=== PATIENT | male | born 1965 | race Caucasian/White ===

== ENCOUNTER 2017-02-24 11:52 | Emergency (ER) | payer BC, MEDICARE ==
[~2017-02-24] VITALS: Ht 177.8 cm; Wt 97.7 kg
[2017-02-24 11:54] VITALS: BP 144/89; PULSE 90; RESP 16; TEMP 98.7; O2SAT 97
--- NOTE | 2017-02-24 12:39 | PD ---
HPI Chief Complaint: Chest Pain Time Seen by Provider: 12:39 Travel History International Travel<30 days: No Contact w/Intl Traveler<30days: No Traveled to known affect area: No History of Present Illness HPI 51-year-old male with a history of hypertension, hyperlipidemia, diabetes, COPD , tobacco abuse presents to the emergency department for evaluation of chest pain and abnormal EKG. The patient states that he was seen by primary care provider Dr. Higgins for the first time today and they were discussing increasing his insomnia medications. States that he wanted a baseline EKG before increasing dosages and noted there to be an abnormality on EKG. the patient was then sent to the ED for further evaluation. The patient states that he has had left anterior chest wall pain for 8 months only with palpation. States that he has been in the process of moving and has done a lot of heavy lifting which is why he believes he has had pain in his chest wall. He denies any shortness of breath, difficulty breathing, lightheadedness, dizziness, nausea, vomiting, abdominal pain. Denies any prior RI or stents. Last stress test was 10 years ago. No other complaints. PFSH Past Medical History Diabetes: Yes (TYPE 2) Respiratory: Yes (COPD) Social History Tobacco Use: Yes Allergies-Medications (Allergen,Severity, Reaction): Coded Allergies: Sulfa (Verified Allergy, Severe, RASH, 02/24/17) Reported Meds & Prescriptions Reported Meds & Active Scripts Active Reported Lisinopril-Hctz 10-12.5 Mg Tab 1 Tab PO DAILY Glipizide 10 Mg Tab 10 Mg PO DAILY Take 30 minutes before a meal Metformin (Metformin HCl) 1,000 Mg Tab 1,000 Mg PO BIDPC With meals Review of Systems Except as stated in HPI: all other systems reviewed are Neg Physical Exam Narrative GENERAL: Well-nourished and well-developed pleasant patient in no acute distress who is nontoxic appearing. SKIN: Warm and dry without any obvious rashes or lesions. HEAD: Normocephalic and atraumatic. No bony point tenderness or crepitus noted throughout the sinuses. EYES: No injection, drainage, or hyphema noted. PERRLA. EOMI. ENT: No nasal drainage noted. Oropharynx is clear and the TMs are normal with good landmarks. NECK: Supple and the trachea is midline. No lymphadenopathy is noted throughout the cervical chains. CARDIOVASCULAR: Regular rate and rhythm. RESPIRATORY: Breath sounds are equal bilaterally with no accessory muscle use, wheezing, rhonchi, or crackles. CHEST: Tenderness to palpation to left pectoris muscle. GASTROINTESTINAL: Abdomen is soft, non-tender, and nondistended. MUSCULOSKELETAL: No obvious deformities, swelling, cyanosis, or ecchymosis is present throughout the upper and lower extremities. Patient has full range of motion without any signs of neurovascular compromise. BACK: Nontender without any obvious deformities, bony point tenderness, or crepitus noted throughout the thoracic and lumbar vertebrae. NEUROLOGICAL: Awake, alert, and oriented. Normal speech and gait. Cranial nerves are grossly intact. Data Data Last Documented VS Vital Signs Date Time Temp Pulse Resp B/P Pulse Ox O2 Delivery O2 Flow Rate FiO2 02/24/17 13:48 97.7 68 17 150/73 98 02/24/17 12:50 Room Air Orders Basic Metabolic Panel (Bmp) (02/24/17 12:45) Ckmb (Isoenzyme) Profile (02/24/17 12:45) Complete Blood Count With Diff (02/24/17 12:45) Comprehensive Metabolic Panel (02/24/17 12:45) Magnesium (Mg) (02/24/17 12:45) Prothrombin Time / Inr (Pt) (02/24/17 12:45) Act Partial Throm Time (Ptt) (02/24/17 12:45) Troponin I (02/24/17 12:45) Chest, Single Ap (02/24/17 12:45) Ecg Monitoring (02/24/17 12:45) Bilateral Bp Monitoring (02/24/17 12:45) Iv Access Insert/Monitor (02/24/17 12:45) Oximetry (02/24/17 12:45) Oxygen Administration (02/24/17 12:45) Sodium Chloride 0.9% Flush (Ns Flush) (02/24/17 12:45) Electrocardiogram (02/24/17 12:22) CKMB (02/24/17 12:50) CKMB% (02/24/17 12:50) Labs Laboratory Tests Test 02/24/17 12:50 White Blood Count 12.1 TH/MM3 Red Blood Count 4.58 MIL/MM3 Hemoglobin 13.9 GM/DL Hematocrit 40.6 % Mean Corpuscular Volume 88.5 FL Mean Corpuscular Hemoglobin 30.2 PG Mean Corpuscular Hemoglobin 34.1 % Concent Red Cell Distribution Width 13.4 % Platelet Count 225 TH/MM3 Mean Platelet Volume 8.8 FL Neutrophils (%) (Auto) 57.5 % Lymphocytes (%) (Auto) 32.8 % Monocytes (%) (Auto) 5.5 % Eosinophils (%) (Auto) 3.7 % Basophils (%) (Auto) 0.5 % Neutrophils # (Auto) 6.9 TH/MM3 Lymphocytes # (Auto) 4.0 TH/MM3 Monocytes # (Auto) 0.7 TH/MM3 Eosinophils # (Auto) 0.4 TH/MM3 Basophils # (Auto) 0.1 TH/MM3 CBC Comment DIFF FINAL Differential Comment Prothrombin Time 9.9 SEC Prothromb Time International 0.9 RATIO Ratio Activated Partial 28.2 SEC Thromboplast Time Sodium Level 136 MEQ/L Potassium Level 4.5 MEQ/L Chloride Level 101 MEQ/L Carbon Dioxide Level 27.4 MEQ/L Anion Gap 8 MEQ/L Blood Urea Nitrogen 13 MG/DL Creatinine 1.06 MG/DL Estimat Glomerular Filtration 74 ML/MIN Rate Random Glucose 294 MG/DL Calcium Level 9.4 MG/DL Magnesium Level 1.7 MG/DL Total Bilirubin 0.2 MG/DL Aspartate Amino Transf 16 U/L (AST/SGOT) Alanine Aminotransferase 29 U/L (ALT/SGPT) Alkaline Phosphatase 148 U/L Total Creatine Kinase 155 U/L Creatine Kinase MB 1.3 NG/ML Troponin I LESS THAN 0.02 NG/ML Total Protein 7.7 GM/DL Albumin 3.7 GM/DL [facility] Medical Decision Making Medical Screen Exam Complete: Yes Emergency Medical Condition: Yes Differential Diagnosis Chest wall pain versus muscle strain versus costochondritis versus ACS versus pleurisy Narrative Course 51-year-old male presents to the emergency department for evaluation of chest wall pain and abnormal EKG. Patient is afebrile, vital signs are stable. He's had chest wall pain to his left chest wall for 8 months brought on only by palpation. He had an EKG done at his primary care provider's office that was abnormal and he was sent to the ED. EKG here shows sinus rhythm with slight ST elevation in V2 and V3 likely early repolarization. IV access is obtained, labs are drawn and sent. Patient is placed on cardiac telemetry and pulse oximetry monitoring. Patient took aspirin this morning. CBC is unremarkable. CMP shows hyperglycemia with a glucose of 294, otherwise unremarkable. Troponin is less than 0.02. Coags are unremarkable. Chest x-ray is unremarkable. Patient has remained stable and without complaint while here in the emergency department. I offered the patient admission to chest pain center for repeat cardiac enzymes, EKGs and possible stress testing. I discussed with the patient that his chest pain is atypical and is likely musculoskeletal in etiology however there is a possibility that this could be cardiogenic. The patient verbalizes understanding and elects to be discharged to home with instead of admission the chest pain center. Discussed signs and symptoms of when to return to the emergency department and advised follow-up with his PCP. Diagnosis Primary Impression: Chest pain Qualified Code: R07.9 - Chest pain, unspecified type Referrals: Primary Care Physician Patient Instructions: Chest Pain (ED), General Instructions Additional Instructions: We offered admission to chest pain center but you elected to be discharged to home and follow-up with your PCP instead. If you develop any worsening chest pain, shortness of breath or difficulty breathing please return to the ED. Med/Other Pt SpecificInfo: No Change to Meds Disposition: 01 DISCHARGE HOME Condition: Stable Paradise Lopez Feb 24, 2017 12:39
[2017-02-24] MEDS ORDERED: GLIP10TA6 PO (12:41)
[2017-02-24] MEDS ORDERED: LISI10TA PO (12:41)
[2017-02-24] MEDS ORDERED: METF1000 PO (12:41)
[2017-02-24] MEDS ORDERED: SODIUM CHLORIDE 0.9% FLUSH 10 ML FLUSH IVF PRN (12:45)
[2017-02-24 12:46] VITALS: RESP 18; O2SAT 98
[2017-02-24 12:50] VITALS: BP_SYST 156; BP_SYST 175; BP_DIAS 73; BP_DIAS 81; PULSE 86; RESP 18; O2SAT 98
[2017-02-24 13:13] LABS: AUTOMATED NEUTROPHIL # 6.9 TH/MM3 (1.8-7.7); BASOPHIL # 0.1 TH/MM3 (0-0.2); BASOPHIL % 0.5 % (0.0-2.0); EOSINOPHIL # 0.4 TH/MM3 (0-0.4); EOSINOPHIL % 3.7 % (0.0-4.0); HEMATOCRIT 40.6 % (39.0-51.0); HEMO FLAGS DIFF FINAL; LYMPH % 32.8 % (9.0-44.0); MEAN CELL VOLUME 88.5 FL (80.0-100.0); MEAN CORPUSCULAR HEMOGLOBIN 30.2 PG (27.0-34.0); MEAN CORPUSCULAR HGB CONC 34.1 % (32.0-36.0); MONO % 5.5 % (0.0-8.0); NEUT % 57.5 % (16.0-70.0); PLATELET COUNT 225 TH/MM3 (150-450); RED BLOOD COUNT 4.58 MIL/MM3 (4.50-5.90); RED CELL DISTRIBUTION WIDTH 13.4 % (11.6-17.2); WHITE BLOOD COUNT 12.1 TH/MM3 (4.0-11.0)
[2017-02-24 13:21] LABS: APTT (PATIENT) 28.2 SEC (24.3-30.1); INTERNATIONAL NORMALIZED RATIO 0.9 RATIO; PROTHROMBIN TIME - PATIENT 9.9 SEC (9.8-11.6)
--- NOTE | 2017-02-24 13:31 | RADRPT ---
EXAM DATE/TIME: 02/24/2017 12:52 [facility] COMPARISON: No previous studies available for comparison. INDICATIONS : Abnormal EKG. Left chest sore to touch. MEDICAL HISTORY : Inferior sternal fracture, not repaired. Left clavicle fracture. SURGICAL HISTORY : None. ENCOUNTER: Initial ACUITY: 1 day PAIN SCORE: 2/10 LOCATION: Left chest FINDINGS: A single view of the chest demonstrates the lungs to be symmetrically aerated without evidence of mas s, infiltrate or effusion. The cardiomediastinal contours are unremarkable. Osseous structures are intact. CONCLUSION: 1. No acute cardiopulmonary findings Mick Harrison MD on February 24, 2017 at 13:29 Board Certified Radiologist. This report was verified electronically.
[2017-02-24 13:42] LABS: ALT (GPT) 29 U/L (12-78); ANION GAP 8 MEQ/L (5-15); AST (GOT) 16 U/L (15-37); BICARBONATE 27.4 MEQ/L (21.0-32.0); CHLORIDE 101 MEQ/L (98-107); GLOMERULAR FILTRATION RATE 74 ML/MIN (>89); MAGNESIUM 1.7 MG/DL (1.5-2.5); POTASSIUM 4.5 MEQ/L (3.5-5.1); SODIUM (NA) 136 MEQ/L (136-145)
[2017-02-24 13:44] LABS: ALKALINE PHOSPHATASE 148 U/L (45-117); BLOOD UREA NITROGEN 13 MG/DL (7-18); CREATINE KINASE 155 U/L (39-308); TOTAL BILIRUBIN ADULT 0.2 MG/DL (0.2-1.0)
[2017-02-24 13:48] VITALS: BP 150/73; TEMP 97.7
[2017-02-24 13:57] LABS: CKMB 1.3 NG/ML (0.5-3.6)
--- NOTE | 2017-02-25 16:06 | EKG ---
Date Performed: 02/24/2017 Time Performed: 12:22:02 PTAGE: 51 years EKG: Sinus rhythm MARKED LEFT AXIS DEVIATION PATTERN CONSISTENT WITH PULMONARY DISEASE ST ELEVATION, PROBABLY EARLY RE POLARIZATION ABNORMAL ECG NO PREVIOUS TRACING DOCTOR: Natali Salinas Interpretating Date/Time 02/25/2017 16:05:47
== END 2017-02-24 13:48 | disposition home or self-care (01) ==
LOC: NEPE 11:52
DX: R07.9 Chest pain, unspecified (principal); R94.31 Abnormal electrocardiogram [ECG] [EKG]; I10 Essential (primary) hypertension; E78.5 Hyperlipidemia, unspecified; E11.9 Type 2 diabetes mellitus without complications; J44.9 Chronic obstructive pulmonary disease, unspecified; F17.210 Nicotine dependence, cigarettes, uncomplicated
CPT/HCPCS: 71010; 80053; 82550; 82552; 83735; 84484; 85025; 85610; 85730; 93005; 99285